=== PATIENT | female | born 1990 | race American Indian/Alaskan Native ===

== ENCOUNTER 2021-12-12 12:39 | Emergency (ER) | payer SELFPAY ==
[2021-12-12 13:25] VITALS: BP 116/63
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
== END 2021-12-12 15:01 | disposition home or self-care (01) ==
LOC: ED 12:39
DX: Z00.00 Encounter for general adult medical examination without abnormal findings (principal); T76.21XA Adult sexual abuse, suspected, initial encounter
CPT/HCPCS: 99282